=== PATIENT | male | born 1965 | race Caucasian/White ===

== ENCOUNTER → 2016-12-13 | Outpatient (CLI) | payer MEDICARE | LOC: SLEEP 21:30 | DX: G47.33 Obstructive sleep apnea (adult) (pediatric) (principal) | CPT/HCPCS: 95810 ==

== ENCOUNTER 2020-10-08 17:53 | Emergency (ER) | payer MEDICARE, OTHER ==
[2020-10-08] MEDS ORDERED: LOTRIMIN CREAM45 GM TOP (19:37)
[2020-10-08] MEDS ORDERED: MORGIDOX100 MG PO (19:37)
== END 2020-10-08 20:30 | disposition home or self-care (01) ==
LOC: ER1 17:53
DX: B37.42 Candidal balanitis (principal); L02.31 Cutaneous abscess of buttock; J44.9 Chronic obstructive pulmonary disease, unspecified; I12.9 Hypertensive chronic kidney disease with stage 1 through stage 4 chronic kidney disease, or unspecified chronic kidney disease; E11.22 Type 2 diabetes mellitus with diabetic chronic kidney disease; N18.9 Chronic kidney disease, unspecified; Z99.2 Dependence on renal dialysis; Z86.14 Personal history of Methicillin resistant Staphylococcus aureus infection; Z88.2 Allergy status to sulfonamides; Z91.013 Allergy to seafood
CPT/HCPCS: 10060; 99282